=== PATIENT | female | born 1980 | race Two or more races ===

== ENCOUNTER 2022-09-18 16:44 | Emergency (ER) | payer OTHER ==
[~2022-09-18] VITALS: Ht 157.5 cm; Wt 79.4 kg
--- NOTE | 2022-09-18 17:00 | NUR ---
BIBS c/o left arm pain x 2 days, denies injury 6/10 ps. AMBULATORY, PLACED IN BED, AAOX4, IN PAIN 6/10 PS
--- NOTE | 2022-09-18 17:30 | NUR ---
X-RAY TECH AT BEDSIDE
[2022-09-18] MEDS ORDERED: IBUP-1953 PO (18:51)
[2022-09-18 19:09] VITALS: BP 155/81
--- NOTE | 2022-09-18 19:09 | NUR ---
Patient discharged to home in stable condition, ambulating. Written and verbal after care instructions given. Patient verbalizes understanding of instruction.
== END 2022-09-18 19:10 | disposition home or self-care (01) ==
LOC: ER 16:48
DX: M77.12 Lateral epicondylitis, left elbow (principal)
CPT/HCPCS: 73090-TC